=== PATIENT | female | born 2000 | race Caucasian/White ===

== ENCOUNTER 2021-03-20 11:23 | Emergency (ER) | payer OTHER, SELFPAY ==
[2021-03-20 11:36] VITALS: BP 133/85; PULSE 85; RESP 16; TEMP 36.8; O2SAT 99
--- NOTE | 2021-03-20 13:06 | ED.GENADULT ---
HPI - General Adult General Chief complaint: Eye Problems Stated complaint: Eye Injury Time Seen by Provider: 03/20/21 11:25 Source: patient, family and RN notes reviewed Mode of arrival: ambulatory Limitations: no limitations History of Present Illness HPI narrative: Patient is a 20-year-old female who presents to emergency department for evaluation of right eye pain noting that her child scratched her eye last night has foreign body sensation with injection and discomfort and light sensitivity has not taken anything for symptoms presents to emergency department and no distress does appear slightly uncomfortable Related Data Allergies Allergy/AdvReac Type Severity Reaction Status Date / Time No Known Allergies Allergy Verified 03/20/21 11:42 Review of Systems Review of Systems: All systems reviewed & are unremarkable except as noted in HPI and below PMFSH Social History Social History (Updated 03/20/21 @ 13:07 by Jl Emery PA-C) Smoking status: Never smoker Gender identity (if verbalized by the patient): Male Exam Narrative: Exam Narrative: GENERAL: Well-appearing, well-nourished, and in no acute distress. HEAD: Normocephalic, atraumatic. EYES: PERRLA and EOMI. right eye with conjunctival injection and clear discharge fluorescein uptake at 3:00 over the iris no foreign bodies ENT: Nares clear, no rhinorrhea or epistaxis. Mucous membranes moist. SKIN: Warm, dry, no rash. NEURO: No focal deficits. Alert and oriented x3. Cranial nerves II through XII grossly intact PSYCH: Normal mood and affect. Course Course Emergency Course: Corneal abrasion diagnosis will be discharged with outpatient follow-up refused tetanus shot will be given ophthalmology follow-up ABCs and vital signs intact and stable Vital Signs Vital signs: Vital Signs Temperature 98.2 F 03/20/21 11:36 Pulse Rate 85 03/20/21 11:36 Respiratory Rate 16 03/20/21 11:36 Blood Pressure 133/85 03/20/21 11:36 Pulse Oximetry 99 03/20/21 11:36 Temperature 98.2 F 03/20/21 11:36 Pulse Rate 85 03/20/21 11:36 Respiratory Rate 16 03/20/21 11:36 Blood Pressure 133/85 03/20/21 11:36 Pulse Oximetry 99 03/20/21 11:36 Medical Decision Making [facility] Narrative Medical decision making narrative: Patient presented with corneal abrasion will be discharged home with outpatient follow-up agreement with the plan Vital Signs Vital Signs: Vital Signs Temperature 98.2 F 03/20/21 11:36 Pulse Rate 85 03/20/21 11:36 Respiratory Rate 16 03/20/21 11:36 Blood Pressure 133/85 03/20/21 11:36 Pulse Oximetry 99 03/20/21 11:36 Temperature 98.2 F 03/20/21 11:36 Pulse Rate 85 03/20/21 11:36 Respiratory Rate 16 03/20/21 11:36 Blood Pressure 133/85 03/20/21 11:36 Pulse Oximetry 99 03/20/21 11:36 Discharge Plan Discharge Clinical Impression: Corneal abrasion Patient Disposition: Home, Self-Care Condition: Stable Instructions: Antibiotic Form, Corneal Abrasion (DC) Additional Instructions: Follow-up with ophthalmology in the next 24 hours to set up for reevaluation Return if symptoms worsen or concerns or any visual changes or vomiting Follow patient education sheets Only take medications as directed Use [id number] preservative-free tears every 2 hours for symptom relief Prescriptions: New erythromycin 5 mg/gram (0.5 %) ointment 0.5 inch EACH EYE QID Qty: 1 RF: 0 ibuprofen [IBU] 600 mg tablet 600 mg PO QID PRN (Reason: fever or pain) Qty: 7 RF: 0 Follow-up/Referrals: PHYSICIAN,ROAST MASTER [Primary Care Provider] - Vinay Mcduffie [Outside] Vinay Palacios [Outside]
[2021-03-20 13:28] VITALS: BP 145/94; PULSE 89; RESP 16; O2SAT 100
== END 2021-03-20 13:31 | disposition home or self-care (01) ==
PROVIDERS: Emergency Provider Emergency Medicine
DX: S05.01XA Injury of conjunctiva and corneal abrasion without foreign body, right eye, initial encounter (principal); W50.4XXA Accidental scratch by another person, initial encounter
CPT/HCPCS: 99283; A9270

== ENCOUNTER 2022-05-19 08:51 | Emergency (ER) | payer OTHER, SELFPAY ==
[2022-05-19 09:06] VITALS: BP 109/60; PULSE 116; RESP 20; TEMP 38.8; O2SAT 100
[2022-05-19 09:52] LABS: SARS-CoV-2 RNA PCR Positive
--- NOTE | 2022-05-19 10:06 | ED.FEVER ---
HPI - Fever General Chief Complaint: Fever Stated Complaint: fever, fatigue, cough Time Seen by Provider: 05/19/22 09:59 History of Present Illness HPI Narrative: Patient is a 21-year-old female here for evaluation of nausea, vomiting, headache, body aches and chills for the past day. Patient states that she began to feel unwell yesterday with some nausea. Today, she woke up with severe body aches, attempted Tylenol but was unable to keep it down. She has not vomited since. She is not vaccinated against COVID, denies known exposures. No abdominal pain, diarrhea, constipation, weakness, shortness of breath, leg swelling or chest pain. LMP 2 weeks ago, denies chance of . Related Data Allergies Allergy/AdvReac Type Severity Reaction Status Date / Time No Known Allergies Allergy Verified 03/20/21 11:42 Review of Systems Review of Systems: Gen: Denies fevers or chills Eyes: Denies eye pain or visual change ENT: Denies congestion Respiratory: Denies shortness of breath or cough CV: Denies chest pain or palpitations GI: Reports nausea and vomiting. Denies abdominal pain or diarrhea : denies burning, urgency, frequency or hematuria Musculoskeletal: Reports body aches. Neuro: Reports headache. Denies numbness, tingling, weakness or focal weakness Skin: Denies rash Except as documented, all other systems reviewed and negative [facility] Social History Social History (Updated 03/20/21 @ 13:07 by Jl Emery, YUE) Smoking status: Never smoker Gender identity (if verbalized by the patient): Male Exam Narrative: APPEARANCE: Uncomfortable appearing. Head: Normocephalic and atraumatic. EYES: PERRLA/EOMI, conjunctivae clear NOSE: No nasal drainage EARS: External ear normal in appearance THROAT: Oropharynx is clear. Mucous membranes are moist. NECK: Supple. No adenopathy, no masses. RESPIRATORY: Airway patent, respirations nonlabored. Clear to auscultation bilaterally, no rales, rhonchi, wheezing. CARDIOVASCULAR: Tachycardic. Regular rhythm without murmurs, rubs, or gallops. ABDOMINAL: Normoactive bowel sounds. Soft, nontender, nondistended. No rebound tenderness or guarding. MUSCULOSKELETAL: Extremities are warm and well-perfused. Moves all extremities well. No edema. NEURO: Normal speech. No focal neurologic deficits. SKIN: Skin is warm and dry. No rashes. PSYCHIATRIC: Normal affect/mood. Course Vital Signs Vital signs: Vital Signs Temperature 101.9 F H 05/19/22 09:06 Pulse Rate 116 H 05/19/22 09:06 Respiratory Rate 20 05/19/22 09:06 Blood Pressure 109/60 05/19/22 09:06 Pulse Oximetry 100 05/19/22 09:06 Oxygen Delivery Room Air 05/19/22 09:06 Temperature 98.9 F 05/19/22 11:41 Pulse Rate 104 H 05/19/22 11:41 Respiratory Rate 16 05/19/22 11:41 Blood Pressure 142/86 H 05/19/22 11:41 Pulse Oximetry 98 05/19/22 11:41 Oxygen Delivery Room Air 05/19/22 10:15 MDM - Fever MDM Narrative Medical decision making narrative: Patient is a 21-year-old female here for evaluation of myalgias and fever for the past day. Here, initially tachycardic with temperature of 101.9 in triage. No hypoxia. She is COVID-positive, which likely explains patient's symptoms. Basic labs unremarkable. She was given IV fluids, Zofran and Tylenol with improvement of her symptoms; fever and tachycardia. Considered, but feel unlikely PE, and she is Wells low risk and not having chest pain, leg swelling or shortness of breath. Patient notes her cough is very mild, lung sounds clear, doubt COVID pneumonia. Feel she is low risk of severe disease progression given age and lack of comorbidities. She was given return precautions and she voiced understanding. Lab Data Result diagrams: 05/19/22 10:13 05/19/22 10:13 Labs: Lab Results 05/19/22 05/19/22 05/19/22 Range/Units 09:11 10:13 10:13 WBC 6.1 (4.5-10.0) K/mm3 RBC 4.52 (4.2-5.4) M/mm3 Hgb 12.6
[2022-05-19 10:15] VITALS: O2SAT 98
[2022-05-19 10:18] LABS: Basophils Percent Auto 0.3 % (0.2-1.2); Hematocrit 38.8 % (37.0-47.0); Hemoglobin 12.6 g/dL (12.0-15.0); Immature Granulocyte Absolute 0.02 K/mm3 (0.00-0.031); Immature Granulocyte Percent A 0.3 % (0-0.5); Lymphocytes Absolute Auto 0.42 K/mm3 (0.9-3.2); Lymphocytes Percent Auto 6.9 % (18.3-44.2); Mean Corpuscular HGB Conc 32.5 g/dl (32-36); Mean Corpuscular Hemoglobin 27.9 pg (26-34); Mean Corpuscular Volume 85.8 fl (80-100); Mean Platelet Volume 11.1 fl (7.4-10.4); Monocytes Absolute Auto 0.6 K/mm3 (0.1-0.6); Monocytes Percent Auto 10.6 % (2.6-8.5); Neutrophils Percent Auto 81.9 % (45.5-73.1); Platelet Count Result 244 k/mm3 (150-375); Red Blood Count 4.52 M/mm3 (4.2-5.4); Red Cell Distribution Width 13.4 % (11.5-14.5); White Blood Count 6.1 K/mm3 (4.5-10.0)
[2022-05-19] MEDS: SODIUM CHLORIDE 0.9% IV 1,000 ML 999 ML IV CONT (10:18)
[2022-05-19] MEDS: ONDANSETRON INJ 4 MG/2 ML VIAL IV PUSH (10:19)
[2022-05-19 10:31] LABS: Alanine Aminotransferase 16 U/L (6-35); Albumin Level 4.3 g/dL (3.5-5.1); Alkaline Phosphatase 84 U/L (38-126); Anion Gap 10 mmol/L (8-16); Aspartate Amino Transferase 18 U/L (14-36); Calcium 8.7 mg/dL (8.4-10.2); Carbon Dioxide 22 mmol/L (22-30); Chloride 104 mmol/L (98-107); Estimated CRCL calculation 120 ml/min; Estimated Glomerular Filt Rate > 60; Glucose 111 mg/dL (65-110); Potassium 3.6 mmol/L (3.4-5.0); Sodium 136 mmol/L (137-145)
[2022-05-19 10:37] LABS: Bilirubin,Total 0.4 mg/dL (0.2-1.3); Blood Urea Nitrogen 11 mg/dL (7-17)
[2022-05-19] MEDS: ACETAMINOPHEN 500 MG TABLET 1000 MG PO (11:05)
[2022-05-19 11:41] VITALS: BP 142/86; PULSE 104; RESP 16; TEMP 37.2; O2SAT 98
== END 2022-05-19 11:45 | disposition home or self-care (01) ==
PROVIDERS: Physician Assistant; Emergency Provider Emergency Medicine
DX: U07.1 COVID-19 (principal); Z28.310 Unvaccinated for COVID-19
CPT/HCPCS: 36415; 80053; 85025; 96361; 96374; 99284; A9270; C9803; J2405; J7030; U0003; U0005